=== PATIENT | female | born 1995 | race Caucasian/White ===

== ENCOUNTER 2017-01-02 21:27 | Emergency (ER) | payer OTHER ==
[~2017-01-02] VITALS: Ht 147.3 cm; Wt 61.5 kg
[2017-01-02 21:52] VITALS: BP 114/88; PULSE 110; RESP 18; TEMP 98.4; O2SAT 100
[2017-01-02] MEDS ORDERED: SODIUM CHLOR 0.9% 1000 ML INJ 1,000 ML IV SCH (22:14)
[2017-01-02] MEDS ORDERED: SODIUM CHLORIDE 0.9% FLUSH 10 ML FLUSH IV FLUSH PRN (22:15)
[2017-01-02] MEDS ORDERED: KETOROLAC TROMETHAMINE 30 MG/ML (IVP) VIAL IV PUSH ONE (22:15)
[2017-01-02] MEDS ORDERED: ONDANSETRON HCL 4 MG/2 ML VIAL IVP ONE (22:15)
[2017-01-02 23:12] LABS: BLOOD, URINE NEG (NEG); GLUCOSE,URINE NEG (NEG); KETONE, URINE NEG (NEG); NITRITE,URINE NEG (NEG)
[2017-01-02 23:18] LABS: BASOPHIL # 0.2 TH/MM3 (0-0.2); BASOPHIL % 1.6 % (0.0-2.0); EOSINOPHIL # 0.1 TH/MM3 (0-0.4); EOSINOPHIL % 0.6 % (0.0-4.0); HEMATOCRIT 47.7 % (35.0-46.0); HEMO FLAGS DIFF FINAL; LYMPH % 15.8 % (9.0-44.0); LYMPHOCYTE # 2.1 TH/MM3 (1.0-4.8); MEAN CELL VOLUME 89.8 FL (80.0-100.0); MEAN CORPUSCULAR HEMOGLOBIN 30.8 PG (27.0-34.0); MEAN CORPUSCULAR HGB CONC 34.3 % (32.0-36.0); MONO % 4.4 % (0.0-8.0); NEUT % 77.6 % (16.0-70.0); PLATELET COUNT 369 TH/MM3 (150-450); RED BLOOD COUNT 5.31 MIL/MM3 (4.00-5.30); RED CELL DISTRIBUTION WIDTH 11.9 % (11.6-17.2)
[2017-01-02 23:20] LABS: URINE COLOR STRAW (YELLW/STRAW)
[2017-01-02 23:21] LABS: BACTERIA, URINE MANY /hpf; COMMENT (UR) CULTURE INDICATED; CULTURE IF INDICATED CULTURE INDICATED; RBC, URINE 0-2 /hpf (0-3); SQUAMOUS EPITHELIAL CELL URINE > 8 /hpf (0-5); WBC, URINE 0-2 /hpf (0-5)
[2017-01-02 23:28] LABS: CHLORIDE 102 MEQ/L (98-107); POTASSIUM 3.4 MEQ/L (3.5-5.1); SODIUM (NA) 140 MEQ/L (136-145)
[2017-01-02] MEDS ORDERED: IOHEXOL 350 MG/ML 10 ML VIAL (for RAD DIAG) IV ONE (23:29)
[2017-01-02 23:32] LABS: ANION GAP 8 MEQ/L (5-15); BICARBONATE 30.2 MEQ/L (21.0-32.0); BLOOD UREA NITROGEN 13 MG/DL (7-18)
[2017-01-02 23:34] LABS: APTT (PATIENT) 26.8 SEC (24.3-30.1); PROTHROMBIN TIME - PATIENT 10.7 SEC (9.8-11.6)
[2017-01-02 23:35] LABS: ALT (GPT) 23 U/L (10-53); AST (GOT) 23 U/L (15-37); GLOMERULAR FILTRATION RATE 75 ML/MIN (>89)
[2017-01-02 23:36] LABS: INDIRECT BILIRUBIN 0.2 MG/DL (0.0-0.8); TOTAL BILIRUBIN ADULT 0.3 MG/DL (0.2-1.0)
[2017-01-02 23:37] LABS: ALKALINE PHOSPHATASE 86 U/L (45-117)
--- NOTE | 2017-01-02 23:43 | PD ---
HPI Chief Complaint: GI Complaint Time Seen by Provider: 22:14 Travel History International Travel<30 days: No Contact w/Intl Traveler<30days: No Traveled to known affect area: No History of Present Illness HPI Patient is a 21-year-old female comes in complaining of abdominal pain. She says that for the past few weeks she has been feeling very nauseous and has vomited a few times. However she started to have right-sided abdominal pain a few days ago. She says the pain is gotten worse, and her friends and family told her she needed to come to the hospital. She says the pain is mostly in her right upper quadrant, but goes down the right side. She denies any dysuria. The last time she vomited was a few days ago. She has not had any fever or chills. PFSH Past Medical History Asthma: Yes Diminished Hearing: No Tetanus Vaccination: > 5 Years Influenza Vaccination: No ?: Unknown LMP: 5-3-17 irregular : 2 Para: 0 Miscarriage: 2 : 0 Past Surgical History Oral Surgery: Yes (WISDOM TEETH) Social History Alcohol Use: Yes (SOC) Tobacco Use: No Substance Use: No Allergies-Medications (Allergen,Severity, Reaction): Coded Allergies: No Known Allergies (Unverified , 01/03/17) Reported Meds & Prescriptions Reported Meds & Active Scripts Active Lortab (Hydrocodone-Acetaminophen) 5-325 Mg Tab 1 Tab PO Q6H PRN Zofran Odt (Ondansetron Odt) 4 Mg Tab 4 Mg SL Q6HR PRN Review of Systems Except as stated in HPI: all other systems reviewed are Neg General / Constitutional: No: Fever, Chills HENT: No: Headaches Cardiovascular: No: Chest Pain or Discomfort Respiratory: No: Shortness of Breath Gastrointestinal: Positive: Nausea, Vomiting, Abdominal Pain, No: Diarrhea Genitourinary: No: Dysuria, Discharge, Vaginal Bleeding Skin: No Rash, No Change in Pigmentation Neurologic: No: Weakness, Dizziness Physical Exam Narrative GENERAL: Awake and alert, no acute distress. SKIN: Focused skin assessment warm/dry. HEAD: Atraumatic. Normocephalic. EYES: Pupils equal and round. No scleral icterus. ENT: Mucous membranes pink and moist. NECK: Trachea midline. No JVD. CARDIOVASCULAR: Regular rate and rhythm. No murmur appreciated. RESPIRATORY: No accessory muscle use. Clear to auscultation. Breath sounds equal bilaterally. GASTROINTESTINAL: Abdomen soft, nondistended. Tender to palpation of the right upper quadrant and right lower quadrant. No rebound or guarding. No CVA tenderness. MUSCULOSKELETAL: No obvious deformities. No clubbing. No cyanosis. No edema. NEUROLOGICAL: Awake and alert. No obvious cranial nerve deficits. Motor grossly within normal limits. Normal speech. PSYCHIATRIC: Appropriate mood and affect; insight and judgment normal. Data Data Last Documented VS Vital Signs Date Time Temp Pulse Resp B/P Pulse Ox O2 Delivery O2 Flow Rate FiO2 01/02/17 23:49 86 117/69 99 Room Air 01/02/17 21:52 98.4 18 Orders Basic Metabolic Panel (Bmp) (01/02/17 22:14) Complete Blood Count With Diff (01/02/17 22:14) Lipase (01/02/17 22:14) Prothrombin Time / Inr (Pt) (01/02/17 22:14) Act Partial Throm Time (Ptt) (01/02/17 22:14) Urinalysis - C+S If Indicated (01/02/17 22:14) Ua Includes Microscopic (01/02/17 22:14) Ct Abd/Pel W Iv Contrast(Rout) (01/02/17 22:14) Iv Access Insert/Monitor (01/02/17 22:14) Ecg Monitoring (01/02/17 22:14) Oximetry (01/02/17 22:14) Ondansetron Inj (Zofran Inj) (01/02/17 22:15) Sodium Chlor 0.9% 1000 Ml Inj (Ns 1000 M (01/02/17 22:14) Sodium Chloride 0.9% Flush (Ns Flush) (01/02/17 22:15) Ed Urine Pregnancytest Poc (01/02/17 22:14) Hepatic Functional Panel (01/02/17 22:14) Ketorolac Inj (Toradol Inj) (01/02/17 22:15) Urine Culture (01/02/17 22:19) Iohexol 350 Inj (Omnipaque 350 Inj) (01/02/17 23:29) Labs Laboratory Tests Test 01/02/17 01/02/17 22:19 23:05 Urine Color STRAW Urine Turbidity SLIGHT Urine pH 6.0 Urine Specific [place] 1.006 Urine Protein NEG mg/dL Urine Glucose (UA) NEG mg/dL Urine Ketones NEG mg/dL Urine Occult Blood NEG Urine Nitrite NEG Urine Bilirubin NEG Urine Leukocyte Esterase NEG Urine RBC 0-2 /hpf Urine WBC 0-2 /hpf Urine Squamous Epithelial > 8 /hpf Cells Urine Bacteria MANY /hpf Microscopic Urinalysis Comment CULTURE INDICATED White Blood Count 13.0 TH/MM3 Red Blood Count 5.31 MIL/MM3 Hemoglobin 16.4 GM/DL Hematocrit 47.7 % Mean Corpuscular Volume 89.8 FL Mean Corpuscular Hemoglobin 30.8 PG Mean Corpuscular Hemoglobin 34.3 % Concent Red Cell Distribution Width 11.9 % Platelet Count 369 TH/MM3 Mean Platelet Volume 8.8 FL Neutrophils (%) (Auto) 77.6 % Lymphocytes (%) (Auto) 15.8 % Monocytes (%) (Auto) 4.4 % Eosinophils (%) (Auto) 0.6 % Basophils (%) (Auto) 1.6 % Neutrophils # (Auto) 10.0 TH/MM3 Lymphocytes # (Auto) 2.1 TH/MM3 Monocytes # (Auto) 0.6 TH/MM3 Eosinophils # (Auto) 0.1 TH/MM3 Basophils # (Auto) 0.2 TH/MM3 CBC Comment DIFF FINAL Differential Comment Prothrombin Time 10.7 SEC Prothromb Time International 1.0 RATIO Ratio Activated Partial 26.8 SEC Thromboplast Time Sodium Level 140 MEQ/L Potassium Level 3.4 MEQ/L Chloride Level 102 MEQ/L Carbon Dioxide Level 30.2 MEQ/L Anion Gap 8 MEQ/L Blood Urea Nitrogen 13 MG/DL Creatinine 0.93 MG/DL Estimat Glomerular Filtration 75 ML/MIN Rate Random Glucose 100 MG/DL Calcium Level 9.1 MG/DL Total Bilirubin 0.3 MG/DL Direct Bilirubin LESS THAN 0.1 MG/DL Indirect Bilirubin 0.2 MG/DL Aspartate Amino Transf 23 U/L (AST/SGOT) Alanine Aminotransferase 23 U/L (ALT/SGPT) Alkaline Phosphatase 86 U/L Total Protein 8.0 GM/DL Albumin 4.0 GM/DL Lipase 244 U/L [facility] Medical Decision Making Medical Screen Exam Complete: Yes Emergency Medical Condition: Yes Medical Record Reviewed: Yes Differential Diagnosis UTI versus pyelonephritis versus appendicitis versus cholecystitis Narrative Course Patient is a 21-year-old female comes in complaining of nausea, vomiting, abdominal pain. Exam shows tenderness to the right side of the abdomen. IV established, labs sent. Labs show an elevated white blood cell count of 13, no other acute abnormalities. Patient given IV fluids, Zofran, Toradol. CT abd/pelvis shows ovarian cyst, no other acute abnormalities. Patient informed of the results. Advised to follow up with chart clerk. Advised to follow up with surgery regarding gallstones, at this time she has no evidence of cholecystitis. Advised to return to the ED as needed for any worsening symptoms. Diagnosis Primary Impression: Ovarian cyst Patient Instructions: General Instructions, Ovarian Cyst (ED) Additional Instructions: Follow up with your primary care doctor and chart clerk. Take Ibuprofen or Naproxen as needed for pain. You can take a Tramadol for severe pain. Return to the ED as needed for any worsening symptoms. Disposition: 01 DISCHARGE HOME Condition: Stable Heidi Izquierdo MD January 02, 2017 23:43
--- NOTE | 2017-01-02 23:45 | RADHPO ---
EXAM DATE/TIME: 01/02/2017 23:20 [facility] COMPARISON: No previous studies available for comparison. INDICATIONS : Abdominal pain with nausea and vomiting. IV CONTRAST: 100 cc Omnipaque 350 (iohexol) IV ORAL CONTRAST: No oral contrast ingested. RADIATION DOSE: 8.96 CTDIvol (mGy) MEDICAL HISTORY : None SURGICAL HISTORY : None. ENCOUNTER: Initial ACUITY: 1 day PAIN SCALE: 6/10 LOCATION: abdomen TECHNIQUE: Volumetric scanning of the abdomen and pelvis was performed. Using automated exposure control and ad justment of the mA and/or kV according to patient size, radiation dose was kept as low as reasonably achievable to obtain optimal diagnostic quality images. FINDINGS: LOWER LUNGS: The visualized lower lungs are clear. LIVER: Homogeneous density without lesion. There is no dilation of the biliary tree. No calcified gallston es. SPLEEN: Normal size without lesion. PANCREAS: Within normal limits. KIDNEYS: Normal in size and shape. There is no mass, stone or hydronephrosis. ADRENAL GLANDS: Within normal limits. VASCULAR: There is no aortic aneurysm. BOWEL/MESENTERY: The stomach, small bowel, and colon demonstrate no acute abnormality. There is no free intraperitone al air or fluid. ABDOMINAL WALL: Within normal limits. RETROPERITONEUM: There is no lymphadenopathy. BLADDER: No wall thickening or mass. REPRODUCTIVE: 3 cm right ovarian cyst. INGUINAL: There is no lymphadenopathy or hernia. MUSCULOSKELETAL: Within normal limits for patient age. CONCLUSION: 3 cm right ovarian cyst otherwise unremarkable CT scan of the abdomen and pelvis. Some mixed density within the gallbladder may indicate a noncalcified gallstone. Nothing to suggest acute cholecystitis Eugene Giordano MD on January 02, 2017 at 23:42 Board Certified Radiologist. This report was verified electronically.
[2017-01-02 23:49] VITALS: BP 117/69; PULSE 86; O2SAT 99
[2017-01-03] MEDS ORDERED: TRAM50TA PO (00:08)
[2017-01-03] MEDS ORDERED: ZOFR4TAB3 SL ×2 (00:08→14:18)
[2017-01-03] MEDS ORDERED: HYDR-3533 PO (14:18)
[2017-01-28] MEDS ORDERED: METR-1 PO (15:39)
== END 2017-01-03 00:35 | disposition home or self-care (01) ==
LOC: PHED 21:27
DX: N83.201 Unspecified ovarian cyst, right side (principal); R11.2 Nausea with vomiting, unspecified; J45.909 Unspecified asthma, uncomplicated
CPT/HCPCS: 74177; 80048; 80076; 81001; 83690; 84703; 85025; 85610; 85730; 87086; 96361; 96374; 96375; 99285; J1885; J2405; J7030; Q9967

== ENCOUNTER 2017-01-06 16:30 | Observation (INO) | payer MEDICAID, OTHER ==
[~2017-01-06] VITALS: Ht 147.3 cm; Wt 60.0 kg
[~2017-01-06 16:30] MED LIST: HYDR-3533 PO; TRAM50TA PO; ZOFR4TAB3 SL
[2017-01-06 16:32] VITALS: BP 146/92; PULSE 78; RESP 16; TEMP 98.6; O2SAT 99
[2017-01-06] MEDS ORDERED: SODIUM CHLOR 0.9% 1000 ML INJ 1,000 ML IV SCH (16:53)
[2017-01-06 17:00] VITALS: BP 129/78; PULSE 94; RESP 16; O2SAT 98
[2017-01-06] MEDS ORDERED: ONDANSETRON HCL 4 MG/2 ML VIAL IVP ONE (17:00)
[2017-01-06] MEDS ORDERED: MORPHINE SULFATE 4 MG/ML INJ IV PUSH ONE (17:00)
[2017-01-06] MEDS ORDERED: PANTOPRAZOLE SODIUM 40 MG VIAL IVP ONE (17:00)
--- NOTE | 2017-01-06 17:04 | PD ---
HPI Chief Complaint: Abdominal Pain Time Seen by Provider: 16:41 Travel History International Travel<30 days: No Contact w/Intl Traveler<30days: No Traveled to known affect area: No History of Present Illness HPI [age] female complains of abdominal pain with nausea vomiting. Patient states that she has intermittent right upper quadrant abdominal pain with nausea vomiting for the past 6 weeks. Patient states that the symptoms are worse a week ago. Patient was seen in emergency room 3 days ago. Patient had blood tests and CT scan abdomen pelvis done. CBC with elevated white count. CT scan abdomen and pelvis at that time shows mixed density within the gallbladder may indicate noncalcified gallstone. No evidence of acute cholecystitis at that time. Patient was discharged home with pain medication and advised to follow- up with personal physician and surgeon. She states that the pain and nausea vomiting got worse since then. Patient also has intermittent fever and chills. Patient states the pain is sharp pain localized to right upper quadrant in the abdomen. The pain is worse with coughing and deep breathing. On a scale of 1-10 the pain is a 9. Patient denies any dysuria or frequency. Patient denies any vaginal discharge or bleeding. PFSH Past Medical History Asthma: Yes Diminished Hearing: No Gastrointestinal Disorders: Yes Reproductive: Yes Tetanus Vaccination: > 5 Years Influenza Vaccination: No ?: Not LMP: 12/09/16 : 2 Para: 0 Miscarriage: 2 : 0 Past Surgical History Oral Surgery: Yes (WISDOM TEETH) Social History Alcohol Use: Yes (SOC) Tobacco Use: No Substance Use: No Allergies-Medications (Allergen,Severity, Reaction): Coded Allergies: No Known Allergies (Unverified , 01/06/17) Reported Meds & Prescriptions Reported Meds & Active Scripts Active Lortab (Hydrocodone-Acetaminophen) 5-325 Mg Tab 1 Tab PO Q6H PRN Zofran Odt (Ondansetron Odt) 4 Mg Tab 4 Mg SL Q6HR PRN Review of Systems General / Constitutional: No: Fever Eyes: No: Visual changes HENT: No: Headaches Cardiovascular: No: Chest Pain or Discomfort Respiratory: No: Shortness of Breath Gastrointestinal: Positive: Nausea, Vomiting, Abdominal Pain Genitourinary: No: Dysuria Musculoskeletal: No: Pain Skin: No Rash Neurologic: No: Weakness Psychiatric: No: Depression Endocrine: No: Polydipsia Hematologic/Lymphatic: No: Easy Bruising Physical Exam Narrative GENERAL: Well-nourished, well-developed patient. SKIN: Focused skin assessment warm/dry. HEAD: Normocephalic. EYES: No scleral icterus. No injection or drainage. NECK: Supple, trachea midline. No JVD or lymphadenopathy. CARDIOVASCULAR: Regular rate and rhythm without murmurs, gallops, or rubs. RESPIRATORY: Breath sounds equal bilaterally. No accessory muscle use. GASTROINTESTINAL: Abdomen soft, nondistended. Patient has moderate tenderness on palpation right upper quadrant of the abdomen. No rebound tenderness. No mass. MUSCULOSKELETAL: No cyanosis, or edema. BACK: Nontender without obvious deformity. No CVA tenderness. Data Data Last Documented VS Vital Signs Date Time Temp Pulse Resp B/P Pulse Ox O2 Delivery O2 Flow Rate FiO2 01/06/17 18:00 94 16 115/73 98 Room Air 01/06/17 16:32 98.6 Orders Complete Blood Count With Diff (01/06/17 16:53) Comprehensive Metabolic Panel (01/06/17 16:53) Lipase (01/06/17 16:53) Prothrombin Time / Inr (Pt) (01/06/17 16:53) Act Partial Throm Time (Ptt) (01/06/17 16:53) Urinalysis - C+S If Indicated (01/06/17 16:53) Us Abdomen Gallbladder (01/06/17 ) Iv Access Insert/Monitor (01/06/17 16:53) Ecg Monitoring (01/06/17 16:53) Oximetry (01/06/17 16:53) Morphine Inj (Morphine Inj) (01/06/17 17:00) Ondansetron Inj (Zofran Inj) (01/06/17 17:00) Pantoprazole Inj (Protonix Inj) (01/06/17 17:00) Sodium Chlor 0.9% 1000 Ml Inj (Ns 1000 M (01/06/17 16:53) Ed Urine Pregnancytest Poc (01/06/17 16:53) Admit Order (Ed Use Only) (01/06/17 18:21) Labs Laboratory Tests Test 01/06/17 01/06/17 17:00 17:25 White Blood Count 10.6 TH/MM3 Red Blood Count 4.91 MIL/MM3 Hemoglobin 15.1 GM/DL Hematocrit 44.6 % Mean Corpuscular Volume 90.7 FL Mean Corpuscular Hemoglobin 30.7 PG Mean Corpuscular Hemoglobin 33.9 % Concent Red Cell Distribution Width 13.0 % Platelet Count 314 TH/MM3 Mean Platelet Volume 8.9 FL Neutrophils (%) (Auto) 73.9 % Lymphocytes (%) (Auto) 19.2 % Monocytes (%) (Auto) 5.0 % Eosinophils (%) (Auto) 1.5 % Basophils (%) (Auto) 0.4 % Neutrophils # (Auto) 7.9 TH/MM3 Lymphocytes # (Auto) 2.0 TH/MM3 Monocytes # (Auto) 0.5 TH/MM3 Eosinophils # (Auto) 0.2 TH/MM3 Basophils # (Auto) 0.0 TH/MM3 CBC Comment DIFF FINAL Differential Comment Prothrombin Time 10.2 SEC Prothromb Time International 0.9 RATIO Ratio Activated Partial 28.0 SEC Thromboplast Time Sodium Level 139 MEQ/L Potassium Level 3.5 MEQ/L Chloride Level 102 MEQ/L Carbon Dioxide Level 28.2 MEQ/L Anion Gap 9 MEQ/L Blood Urea Nitrogen 13 MG/DL Creatinine 0.95 MG/DL Estimat Glomerular Filtration 74 ML/MIN Rate Random Glucose 111 MG/DL Calcium Level 8.8 MG/DL Total Bilirubin 0.3 MG/DL Aspartate Amino Transf 21 U/L (AST/SGOT) Alanine Aminotransferase 24 U/L (ALT/SGPT) Alkaline Phosphatase 81 U/L Total Protein 7.4 GM/DL Albumin 3.7 GM/DL Lipase 199 U/L Urine Color LIGHT-YELLOW Urine Turbidity CLEAR Urine pH 6.5 Urine Specific [place] 1.005 Urine Protein NEG mg/dL Urine Glucose (UA) NEG mg/dL Urine Ketones NEG mg/dL Urine Occult Blood NEG Urine Nitrite NEG Urine Bilirubin NEG Urine Urobilinogen LESS THAN 2.0 MG/DL Urine Leukocyte Esterase NEG Urine RBC LESS THAN 1 /hpf Urine WBC LESS THAN 1 /hpf Urine Squamous Epithelial 1 /hpf Cells Microscopic Urinalysis Comment CULT NOT INDICATED MDM Medical Decision Making Medical Screen Exam Complete: Yes Emergency Medical Condition: Yes Interpretation(s) 1743 PM. CBC within normal limit. CMP within normal limit. Differential Diagnosis Differential diagnosis including acute cholecystitis, cholangitis, pancreatitis , colitis, UTI, pyelonephritis, nephrolithiasis. Narrative Course 21-year-old female with recurrent right upper quadrant abdominal pain and nausea vomiting. Normal saline solution 1 25 cc an hour. Morphine 2 mg IV. Zofran 4 mg IV. Protonix 40 mg IV. Zosyn 3.375 g IV. Diagnosis Primary Impression: Cholelithiasis Qualified Code: K80.20 - Calculus of gallbladder without cholecystitis without obstruction Additional Impression: Abdominal pain Qualified Code: R10.11 - Right upper quadrant abdominal pain Admitting Information Admitting Physician Requests: Observation Joe Haddad MD January 06, 2017 17:04
[2017-01-06 17:13] LABS: AUTOMATED NEUTROPHIL # 7.9 TH/MM3 (1.8-7.7); BASOPHIL % 0.4 % (0.0-2.0); EOSINOPHIL # 0.2 TH/MM3 (0-0.4); EOSINOPHIL % 1.5 % (0.0-4.0); HEMATOCRIT 44.6 % (35.0-46.0); HEMO FLAGS DIFF FINAL; LYMPH % 19.2 % (9.0-44.0); MEAN CELL VOLUME 90.7 FL (80.0-100.0); MEAN CORPUSCULAR HEMOGLOBIN 30.7 PG (27.0-34.0); MEAN CORPUSCULAR HGB CONC 33.9 % (32.0-36.0); NEUT % 73.9 % (16.0-70.0); PLATELET COUNT 314 TH/MM3 (150-450); RED BLOOD COUNT 4.91 MIL/MM3 (4.00-5.30); WHITE BLOOD COUNT 10.6 TH/MM3 (4.0-11.0)
[2017-01-06 17:28] LABS: INTERNATIONAL NORMALIZED RATIO 0.9 RATIO; PROTHROMBIN TIME - PATIENT 10.2 SEC (9.8-11.6)
[2017-01-06 17:38] LABS: ANION GAP 9 MEQ/L (5-15); AST (GOT) 21 U/L (15-37); BICARBONATE 28.2 MEQ/L (21.0-32.0); BLOOD UREA NITROGEN 13 MG/DL (7-18); CHLORIDE 102 MEQ/L (98-107); GLOMERULAR FILTRATION RATE 74 ML/MIN (>89); POTASSIUM 3.5 MEQ/L (3.5-5.1); SODIUM (NA) 139 MEQ/L (136-145)
[2017-01-06 17:38] LABS: BLOOD, URINE NEG (NEG); COMMENT (UR) CULT NOT INDICATED; CULTURE IF INDICATED CULT NOT INDICATED; GLUCOSE,URINE NEG (NEG); KETONE, URINE NEG (NEG); NITRITE,URINE NEG (NEG); PH, URINE 6.5 (5.0-8.5); SQUAMOUS EPITHELIAL CELL URINE 1 /hpf (0-5); URINE COLOR LIGHT-YELLOW (YELLW/STRAW)
[2017-01-06 17:41] LABS: ALKALINE PHOSPHATASE 81 U/L (45-117); ALT (GPT) 24 U/L (10-53); TOTAL BILIRUBIN ADULT 0.3 MG/DL (0.2-1.0)
[2017-01-06 18:00] VITALS: BP 115/73; PULSE 94; RESP 16; O2SAT 98
[2017-01-06] MEDS ORDERED: SODIUM CHLORIDE 0.9% FLUSH 10 ML FLUSH IV FLUSH PRN (18:30)
[2017-01-06] MEDS ORDERED: MORPHINE SULFATE 4 MG/ML INJ IV PRN (18:30)
[2017-01-06] MEDS ORDERED: MAGNESIUM HYDROXIDE SUSP 30 ML CUP PO ONE (18:30)
[2017-01-06] MEDS: SODIUM CHLOR 0.9% 1000 ML INJ 1,000 ML IV SCH (18:35)
--- NOTE | 2017-01-06 18:35 | RADRPT ---
EXAM DATE/TIME: 01/06/2017 17:40 [facility] COMPARISON: No previous studies available for comparison. INDICATIONS : Right upper quadrant pain. MEDICAL HISTORY : . Asthma. SURGICAL HISTORY : None. ENCOUNTER: Initial ACUITY: 1 month PAIN SCORE: 8/10 LOCATION: Right upper quadrant MEASUREMENTS: LIVER: 12.9 cm length COMMON DUCT: 5 mm RIGHT KIDNEY: 9.6 x 3.9 x 3.9 cm FINDINGS: LIVER: Normal echotexture without focal lesion or ductal dilatation. COMMON DUCT: No intraluminal mass or stone visualized. GALLBLADDER: Gallstone is identified within the gallbladder measuring 12 mm. No significant wall thickening, peric holecystic fluid or sonographic Membreno's sign is noted. PANCREAS: The visualized portions are within normal limits. RIGHT KIDNEY: No evidence of hydronephrosis, stone, or mass. CONCLUSION: Cholelithiasis. Otherwise unremarkable sonogram of the abdomen. Benjamín Luther MD on January 06, 2017 at 18:32 Board Certified Radiologist. This report was verified electronically.
[2017-01-06] MEDS: PANTOPRAZOLE SODIUM 40 MG VIAL IV SCH (18:57)
[2017-01-06 19:24] VITALS: BP 113/62; PULSE 91; RESP 17; O2SAT 98
[2017-01-06] MEDS: PIPERACIL-TAZO 3.375 GM PREMIX 50 ML IV SCH (19:53)
[2017-01-06] MEDS: SODIUM CHLORIDE 0.9% FLUSH 10 ML FLUSH IV FLUSH SCH (20:55)
[2017-01-06 21:12] VITALS: BP 115/73; PULSE 80; RESP 21; TEMP 98; O2SAT 98
--- NOTE | 2017-01-06 22:58 | MH ---
cc: RAJAN LOTT DATE OF CONSULTATION 01/06/17 CHIEF COMPLAINT Acute cholecystitis. HISTORY OF PRESENT ILLNESS The patient is a 21-year-old female with a known history of gallstones and right upper quadrant pain who developed severe unrelenting 10/10 pain in epigastric area earlier today. The patient's presented to the emergency department, underwent evaluation by Dr. Haddad, the emergency room physician and was found to have positive Membreno sign as well as borderline elevated white blood cell count with a left shift concerning for early acute cholecystitis. General surgery was consulted. The patient states that she has had several weeks of increasing right upper quadrant pain, nausea, vomiting related to fatty food intake. However, this episode was sudden and more acute and more severe than any previous episode and has not been relieved. Ultrasound performed of the gallbladder did show cholelithiasis. REVIEW OF SYSTEMS 12 point review of systems was reviewed with the patient and is negative except for the pertinent positives mentioned above in the history of present illness. PAST MEDICAL HISTORY Asthma. PAST SURGICAL HISTORY [place] teeth extraction. SOCIAL HISTORY The patient socially uses alcohol. Denies drug or tobacco use. ALLERGIES No known drug allergies. MEDICATIONS 1. Lortab. 2. Zofran prescribed for above biliary disease. FAMILY HISTORY Multiple family members with gallstones requiring cholecystectomy. PHYSICAL EXAMINATION VITAL SIGNS: The temperature 98.6 degrees, pulse 94, respiratory rate 16, blood pressure 115/72, O2 saturation 98%. GENERAL: The patient is a well-developed, well-nourished female in no acute distress. HEAD: Normocephalic, atraumatic. Pupils are round, reactive to accommodation and light. Sclerae is anicteric. Oral cavity is clear. NECK: Supple. No JVD. LUNGS: Clear to auscultation bilaterally. HEART: Regular rate and rhythm. ABDOMEN: Soft, tender to palpation in the right upper quadrant. Positive Membreno sign with deep inspiration. Negative tenderness over McBurney's point. No surgical scars. No hernias. No ascites. Normal bowel sounds. BACK: No CVA tenderness. EXTREMITIES: No clubbing, cyanosis or edema. NEUROLOGIC: The patient is awake, alert, oriented x3. Nonfocal peripheral exam. Cranial nerves II-XII are grossly intact. ASSESSMENT/PLAN The patient is a 21-year-old female with history of biliary colic now with likely early acute cholecystitis. I discussed this with the patient and recommend admission with IV antibiotics and cholecystectomy. She agrees to this plan and would like to undergo admission for planned early cholecystectomy. The risks, benefits, alternatives to laparoscopic cholecystectomy for treatment of biliary colic as well as acute cholecystitis were discussed with the patient and her family. All of their questions were answered to their satisfaction. Will admit the patient, maintain her of a strict low-fat diet. Start her on IV antibiotics and planned operative intervention in the next 24 to 48 hours. MD CHRISTINA DyerG/RANDALL /10:14 PM /10:44 PM
[2017-01-07] VITALS (7 sets, daily range): BP systolic 89–134; BP diastolic 51–75; PULSE 70–89; RESP 17–20; TEMP 96.7–98.8; O2SAT 95–99
[2017-01-07] MEDS: oxyCODONE/ACETAMINOPHEN 5 MG/325 MG TAB PO PRN ×2 (00:16→11:15)
[2017-01-07] MEDS: PIPERACIL-TAZO 3.375 GM PREMIX 50 ML IV SCH ×4 (02:04→21:14)
[2017-01-07] MEDS: SODIUM CHLOR 0.9% 1000 ML INJ 1,000 ML IV SCH ×3 (02:22→18:28)
--- NOTE | 2017-01-07 07:12 | HHI.PR ---
Subjective Subjective Notes RUQ pain controlled Objective Vitals/I&O Vital Signs Date Time Temp Pulse Resp B/P Pulse Ox O2 Delivery O2 Flow Rate FiO2 01/07/17 03:41 98.5 87 18 132/61 98 01/06/17 19:24 Room Air Labs Laboratory Tests Test 01/06/17 01/06/17 17:00 17:25 White Blood Count 10.6 Red Blood Count 4.91 Hemoglobin 15.1 Hematocrit 44.6 Mean Corpuscular Volume 90.7 Mean Corpuscular Hemoglobin 30.7 Mean Corpuscular Hemoglobin 33.9 Concent Red Cell Distribution Width 13.0 Platelet Count 314 Mean Platelet Volume 8.9 Neutrophils (%) (Auto) 73.9 Lymphocytes (%) (Auto) 19.2 Monocytes (%) (Auto) 5.0 Eosinophils (%) (Auto) 1.5 Basophils (%) (Auto) 0.4 Neutrophils # (Auto) 7.9 Lymphocytes # (Auto) 2.0 Monocytes # (Auto) 0.5 Eosinophils # (Auto) 0.2 Basophils # (Auto) 0.0 CBC Comment DIFF FINAL Differential Comment Prothrombin Time 10.2 Prothromb Time International 0.9 Ratio Activated Partial 28.0 Thromboplast Time Sodium Level 139 Potassium Level 3.5 Chloride Level 102 Carbon Dioxide Level 28.2 Anion Gap 9 Blood Urea Nitrogen 13 Creatinine 0.95 Estimat Glomerular Filtration 74 Rate Random Glucose 111 Calcium Level 8.8 Total Bilirubin 0.3 Aspartate Amino Transf 21 (AST/SGOT) Alanine Aminotransferase 24 (ALT/SGPT) Alkaline Phosphatase 81 Total Protein 7.4 Albumin 3.7 Lipase 199 Urine Color LIGHT-YELLOW Urine Turbidity CLEAR Urine pH 6.5 Urine Specific [place] 1.005 Urine Protein NEG Urine Glucose (UA) NEG Urine Ketones NEG Urine Occult Blood NEG Urine Nitrite NEG Urine Bilirubin NEG Urine Urobilinogen LESS THAN 2.0 Urine Leukocyte Esterase NEG Urine RBC LESS THAN 1 Urine WBC LESS THAN 1 Urine Squamous Epithelial 1 Cells Microscopic Urinalysis Comment CULT NOT INDICATED Cardiovascular: Regular Lungs: Clear Abdomen: Non-distended Extremities: No edema, Perfused Narrative Exam RUQ pain A/P Assessment and Plan 21yo female with acute cholecystitis, stable. continue ABX, increase pain meds as needed. for lap evelyn tomorrow. Ben Plascencia MD January 07, 2017 07:12
[2017-01-07] MEDS ORDERED: POLYETHYLENE GLYCOL 17 GM PKG PO ONE (08:00)
[2017-01-07] MEDS ORDERED: HYDROmorphone HCL PF 1 MG/ML VIAL IV PUSH PRN (08:00)
[2017-01-07] MEDS: PANTOPRAZOLE SODIUM 40 MG VIAL IV SCH (08:11)
[2017-01-07] MEDS: SODIUM CHLORIDE 0.9% FLUSH 10 ML FLUSH IV FLUSH SCH ×2 (08:51→21:00)
[2017-01-07] MEDS: ONDANSETRON HCL 4 MG/2 ML VIAL IV PUSH PRN (10:45)
[2017-01-08] VITALS (7 sets, daily range): BP systolic 90–111; BP diastolic 51–70; PULSE 71–97; RESP 16–20; TEMP 95.5–98.1; O2SAT 96–99
[2017-01-08] MEDS: PIPERACIL-TAZO 3.375 GM PREMIX 50 ML IV SCH ×3 (01:35→12:44)
[2017-01-08] MEDS: SODIUM CHLOR 0.9% 1000 ML INJ 1,000 ML IV SCH ×3 (01:38→16:15)
[2017-01-08] MEDS: PANTOPRAZOLE SODIUM 40 MG VIAL IV SCH (08:25)
[2017-01-08] MEDS: SODIUM CHLORIDE 0.9% FLUSH 10 ML FLUSH IV FLUSH SCH ×2 (08:26→20:44)
[2017-01-08] MEDS ORDERED: PROPOFOL 200 MG/20 ML AMP IV ONE (12:00)
[2017-01-08] MEDS ORDERED: ONDANSETRON HCL 4 MG/2 ML VIAL IV PUSH ONE (12:00)
[2017-01-08] MEDS ORDERED: NEOSTIGMINE 3 MG/3 ML SYR IV ONE (12:00)
[2017-01-08] MEDS ORDERED: PHENYLEPH/NS 1000 MCG/10 ML SYR IV ONE (12:00)
[2017-01-08] MEDS ORDERED: STERILE WATER FOR INJ 20 ML VIAL ONE (12:55)
[2017-01-08] MEDS ORDERED: MIDAZOLAM HCL 2 MG/2 ML VIAL ONE (13:27)
[2017-01-08] MEDS ORDERED: FAMOTIDINE 20 MG/2 ML VIAL ONE (13:27)
[2017-01-08] MEDS ORDERED: BUPIVACAINE/EPINEPHRINE 0.5% 50 ML VIAL INFIL ONE (14:16)
[2017-01-08] MEDS ORDERED: fentaNYL CITRATE 250 MCG/5 ML AMP ONE (15:20)
--- NOTE | 2017-01-08 15:26 | HHI.PR ---
Immediate Post Op Note Procedure Date: January 08, 2017 Pre Op Diagnosis: (1) Acute cholecystitis (2) Ovarian cyst (3) Abdominal pain Post Op Diagnosis: (1) Ovarian cyst (2) Acute cholecystitis (3) Abdominal pain Surgeon: Ben Plascencia Service Director(s): staff Procedure: laparoscopic Cholecystectomy, lap appendectomy Findings: mild inflammation and gallstones, normal ovaries and appendix Complications: none Specimen(s) removed: GB, appendix Estimated blood loss: 10ml Anesthesia: General, Local Drains: None Patient to: PACU Patient Condition: Good Ben Plascencia MD January 08, 2017 15:26
[2017-01-08] MEDS ORDERED: DO NOT ADM ANY ANTICOAGULANT DRUGS PRN (15:30)
[2017-01-08] MEDS ORDERED: *RESP: ALBUTEROL 2.5 MG/3 ML NEB (PRN) PERIprocedural Use ONLY NEB ONE (15:42)
[2017-01-08] MEDS ORDERED: *morphine SULFATE 8 MG/ML PERIprocedure ONLY ONE (15:53)
[2017-01-08] MEDS: KETOROLAC TROMETHAMINE 30 MG/ML (IVP) VIAL IV PUSH PRN ×2 (15:55→21:51)
[2017-01-08] MEDS: ONDANSETRON HCL 4 MG/2 ML VIAL IV PUSH PRN (21:52)
[2017-01-09] VITALS: BP 121/82; PULSE 91; RESP 20; TEMP 97.4; O2SAT 99
[2017-01-09] MEDS: SODIUM CHLOR 0.9% 1000 ML INJ 1,000 ML IV SCH ×2 (02:19→08:27)
[2017-01-09] MEDS: KETOROLAC TROMETHAMINE 30 MG/ML (IVP) VIAL IV PUSH PRN (04:58)
--- NOTE | 2017-01-09 06:14 | MP ---
cc: RAJAN LOTT DATE OF SURGERY 01/08/2017 PREOPERATIVE DIAGNOSES 1. Acute cholecystitis. 2. Cholelithiasis. 3. Abdominal pain. 4. History of ovarian cyst. POSTOPERATIVE DIAGNOSES 1. Acute cholecystitis. 2. Cholelithiasis. 3. Abdominal pain. 4. History of ovarian cyst. PROCEDURE 1. Diagnostic laparoscopy. 2. Laparoscopic cholecystectomy. 3. Laparoscopic appendectomy. ANESTHESIA General and local anesthetic. ATTENDING SURGEON Rajan Lott MD [employer] Staff. ESTIMATED BLOOD LOSS 10 cc. COMPLICATIONS None. FINDINGS Normal-appearing ovaries. Normal-appearing appendix. Mildly inflamed gallbladder with one large gallstone in the neck of the gallbladder. INDICATION FOR PROCEDURE The patient is a 21-year-old female with approximately six weeks of abdominal pain. The patient experienced some vomiting and on workup did have a gallstone as well as some ovarian cysts. The patient was admitted for severe pain requiring IV medication and to rule out cholecystitis over the weekend. The patient continues to have persistent pain and discussion with the patient about the potential management. I did recommend laparoscopic cholecystectomy as it is likely the cause of the patient's symptoms, early acute cholecystitis to her gallstone. We also discussed with the patient about performing appendectomy and diagnostic laparoscopy to evaluate for any other pathology. The patient did have a strong family history of gallbladder as well as appendix disorders and she did desire to have her appendix removed as well as the gallbladder as well as some evaluation of her ovaries intraoperatively. The risks, benefits and alternatives to the above procedure were discussed with the patient and the patient agreed to undergo the procedure. PROCEDURE Informed consent was obtained. The patient was taken to the operating room and placed in supine position and placed under general endotracheal anesthesia. The patient's abdomen was prepped and draped in a sterile fashion. Time-out was performed. The abdomen was entered with Greg type technique under direct visualization. We made a curvilinear incision infraumbilically and took this down through the subcutaneous tissue and opened the midline fascia with a 15 blade scalpel. We directly entered the abdomen with retractors and placed a 10-mm balloon trocar into the abdomen under direct visualization. We insufflated the abdomen, surveyed the abdomen with a 5-mm, 30-degree camera. There was no evidence of any complication from our entry. We placed three 5-mm ports in the right upper quadrant under visualization of the laparoscope. Local anesthetic was used at all port sites. We then were able to direct our attention towards cholecystectomy, grasped the gallbladder at the fundus, retracted it upward. We were able to use the hook electrocautery as well as [place] dissector to dissect out the triangle of Calot. The critical view was obtained. There was some mild inflammation of the gallbladder but there was no significant edema or any sign of any severe pathology. There was a large gallstone in the neck of the gallbladder that was somewhat stuck. We then divided the cystic duct and cystic artery after we had clipped proximal and distal. We took the gallbladder off the gallbladder fossa with hook electrocautery, removed the gallbladder from the abdomen through the periumbilical port with EndoCatch bag. We then turned out attention to diagnostic laparoscopy and possible appendectomy. We did evaluate the patient's appendix which appeared mildly dilated at the midportion of the appendix but there was no obvious abnormality. We did look at the ovaries; the right ovary was larger than the left with no obvious pathology or abnormality in the pelvis. We then performed appendectomy by using a single hinojosa load in the Eth[employer] [place] stapler, divided the base of the appendix which was splayed into the tinea as well as the very small mesentery which was traveling along with the appendix. There was no bleeding at this staple line and the staple line was intact and viable. We then removed the appendix from the abdomen through the 10-mm port, through the port sheath. We then again visualized the abdomen. There was again no evidence of any of bleeding or complication from our procedure. We did use some irrigation to irrigate and suction out the right upper quadrant until all suctioning was clear. We removed ports under visualization of the laparoscope and expressed the pneumoperitoneum. We closed the Greg entry site with a [id number] 0 Vicryl suture on the fascia, closed the skin with 4-0 Monocryl and Dermabond. The patient was discontinued from anesthesia and taken to the PACU in stable condition. The patient tolerated procedure well. No apparent complications. All counts were correct. I was present and scrubbed for the entire procedure. MD JARRET Dyer/BASIL /3:30 PM /5:59 AM
[2017-01-09 08:00] VITALS: BP 88/59; PULSE 97; RESP 16; TEMP 97.1; O2SAT 99
[2017-01-09] MEDS: PANTOPRAZOLE SODIUM 40 MG VIAL IV SCH (08:26)
[2017-01-09] MEDS: SODIUM CHLORIDE 0.9% FLUSH 10 ML FLUSH IV FLUSH SCH (08:27)
[2017-01-09 08:28] VITALS: O2SAT 97
[2017-01-09] MEDS: traMADol HCL 50 MG TAB PO PRN ×2 (10:00→13:49)
[2017-01-09] MEDS ORDERED: MAGNESIUM HYDROXIDE SUSP 30 ML CUP PO ONE (10:15)
[2017-01-09] MEDS ORDERED: LACTULOSE SYRUP 20 GM/30 ML CUP PO ONE (10:15)
[2017-01-09] MEDS ORDERED: DOCUSATE SODIUM 100 MG CAP PO ONE (10:15)
[2017-01-09 12:00] VITALS: BP 123/78; PULSE 90; RESP 17; TEMP 96.7; O2SAT 94
--- NOTE | 2017-01-09 15:27 | HHI.DS ---
Discharge Summary Admission Date January 06, 2017 at 18:23 Discharge Date: January 09, 2017 Admitting Diagnosis cholelithiasis. Abdominal pain. Brief History 21 year old female presents to the ED with abdominal pain. CBC/BMP: 01/06/17 1700 01/06/17 1700 Significant Findings Laboratory Tests Test 01/06/17 17:00 Neutrophils (%) (Auto) 73.9 % (16.0-70.0) Neutrophils # (Auto) 7.9 TH/MM3 (1.8-7.7) Estimat Glomerular Filtration 74 ML/MIN (>89) Rate Random Glucose 111 MG/DL (74-106) PE at Discharge Alert and awake sitting up in bed Cardio: RRR Resp: CTAB Abd: post op tenderness; lap sites c/d/i with skin glue Hospital Course This is a 21 year old female POD1 laparoscopic cholecystectomy and laparoscopic appendectomy. She was able to tolerate a regular diet prior to DC. Her pain was controlled using Ultram. She was provided a prescription for this. She will follow up in the office as indicated on the DC information. She is not to return to work until seen at the follow up visit in the office. Pt Condition on Discharge: Good Discharge Disposition: Discharge Home Discharge Instructions DIET: Follow Instructions for: As Tolerated, No Restrictions, Low Fat Diet Activities you can perform: See Additionl Instruction Other Activity Instructions: Okay to shower today No heavy pulling pushing or lifting Attending Statement The exam, history, and the medical decision-making described in the above note were completed with the assistance of the mid-level provider. I reviewed and agree with the findings presented. I attest that I had a [id number] encounter with the patient on the same day, and personally performed and documented my assessment and findings in the medical record. pain controlled, abdominal exam stable postop, ok to DC home today Savannah Rothman January 09, 2017 15:27 Ben Plascencia MD Jan 10, 2017 13:43
[2017-01-28] MEDS ORDERED: METR-1 PO (15:39)
== END 2017-01-09 16:11 | disposition home or self-care (01) ==
LOC: NEPD 16:30 → NEDA 18:23 → NEPHCDU 18:55 → NEDA 19:06 → NEPGCP 20:13 → N07B 01-08 15:27
PROVIDERS: ADMIT Surgery; ATTEND Surgery
DX: K38.8 Other specified diseases of appendix (principal); K80.10 Calculus of gallbladder with chronic cholecystitis without obstruction; J45.909 Unspecified asthma, uncomplicated
CPT/HCPCS: 44970; 47562; 76705; 80053; 81001; 83690; 84703; 85025; 85610; 85730; 88304; 94640; 96374; 96375; 99285; C9113; G0378; J1170; J1885; J2250; J2270; J2370; J2405; J2543; J2710; J3010; J7030; J7613

== ENCOUNTER 2017-08-21 09:48 | Emergency (ER) | payer SELFPAY ==
[~2017-08-21 09:48] MED LIST changes: +AZIT500T2 PO; +METR-1 PO; -TRAM50TA PO
[2017-08-21 09:50] VITALS: BP 126/73; PULSE 86; RESP 18; TEMP 98.8; O2SAT 98
== END 2017-08-21 11:07 | disposition left against medical advice (07) ==
LOC: NED 09:48
DX: Z04.9 Encounter for examination and observation for unspecified reason (principal)
CPT/HCPCS: 99281